=== PATIENT | female | born 1940 ===

== ENCOUNTER 2024-01-21 05:37 | Observation (INO) ==
[~2024-01-21 05:37] MED LIST: Metoclopramide 5 MG/ML VIAL (10 mg) IV PRN; NS 0.45% 1000 ml BAG 1,000 ML IV SCH; Naloxone 0.4 mg VIAL 0.4 mg/ml 1 ml VIAL IV PRN; Ondansetron 4 mg VIAL 2 MG/ML 2 ml VIAL IV PRN
[2024-01-21] MEDS ORDERED: ceFAZolin 2 GM in NS PREMIX 2 GM/100 ML BAG IVPB ONE (06:05)
[2024-01-21 06:15] LABS: Rapid COVID-19 Molecular Undetected (Undetected)
[2024-01-21] MEDS: Lactated Ringers 1000 ml BAG 1,000 ML IV SCH ×2 (06:40→12:16)
[2024-01-21] MEDS: Scopolamine 1 mg/72hr PATCH TRANSDERM ONE (06:44)
[2024-01-21] MEDS ORDERED: ROPIVACAINE 5 MG/ML 30 ML BTL (0.5%) ONE (06:46)
[2024-01-21 07:15] LABS: Hematocrit 28.8 % (35-45); Hemoglobin 9.5 g/dL (11.5-14.3); Mean Corpuscular Hemoglobin 23.1 pg (27-33); Mean Corpuscular Hgb Conc 32.9 g/dL (31-36); Mean Corpuscular Volume 70.4 fL (80-97); Mean Platelet Volume 6.5 fL (7.5-11.2); Platelet Count 379 10^3/uL (150-450); Red Blood Count 4.09 10^6/uL (3.63-4.92); Red Cell Distribution Width 32.6 % (12-17); White Blood Count 5.2 10^3/uL (3.8-11.8)
[2024-01-21] MEDS ORDERED: Phenylephrine IV 10 MG/ML 1 ml VIAL ONE (07:15)
[2024-01-21] MEDS ORDERED: Propofol 10 MG/ML 20 ML BTL ONE ×2 (07:17→09:42)
[2024-01-21] MEDS ORDERED: Glycopyrrolate IV 0.2 MG/ML 1 ML VIAL ONE (07:58)
[2024-01-21] MEDS ORDERED: Lidocaine 2% PF 5 ML VIAL ONE (08:15)
[2024-01-21] MEDS ORDERED: Bupivacaine 0.5% PF 10 ML SDV VIAL INJ ONE (08:15)
[2024-01-21 08:37] LABS: ABS Basophils 0.1 10^3/uL (0.0-0.1); ABS Eosinophils 0.2 10^3/uL (0.0-0.5); ABS Lymphocytes 1.2 10^3/uL (1.0-4.8); ABS Monocytes 0.6 10^3/uL (0.0-0.9); ABS Neutrophils 3.3 10^3/uL (1.5-7.6); Eosinophil % 2.9 %; Lymphocyte % 22.1 %
[2024-01-21] MEDS ORDERED: fentaNYL 100 mcg/2 ml 50 MCG/ML VIAL ONE ×2 (09:59→10:47)
[2024-01-21] MEDS ORDERED: Magnesium Hydroxide LIQ 30 ML UDC PO PRN (10:18)
[2024-01-21] MEDS ORDERED: Ondansetron 4 mg VIAL 2 MG/ML 2 ml VIAL IV PRN (10:18)
[2024-01-21] MEDS ORDERED: Ondansetron ODT 4 mg TAB 4 MG TAB PO PRN (10:18)
[2024-01-21] MEDS ORDERED: Morphine 2 MG/ML SYRINGE IV PRN (10:18)
[2024-01-21] MEDS ORDERED: Lactulose 30 ml UDC PO PRN (10:18)
[2024-01-21] MEDS ORDERED: Calcium Carb (TUMS) 500 mg CHEW TAB PO PRN (10:18)
[2024-01-21] MEDS: fentaNYL 100 mcg/2 ml 50 MCG/ML VIAL IV PRN (10:51)
[2024-01-21] MEDS: Buffered Lidocaine 1% SYRIN 1 ml INTRADERM ONE (12:20)
[2024-01-21] MEDS: Acetaminophen IV 1 GM/100ML 1,000 MG/100 ML BAG IV ONE (12:20)
[2024-01-21] MEDS: ceFAZolin 2 GM in NS PREMIX 2 GM/100 ML BAG IVPB SCH (16:02)
[2024-01-21] MEDS: Magnesium Hydroxide LIQ 30 ML UDC PO SCH (20:45)
[2024-01-22] MEDS: Vitamin THERAPEUTIC TAB PO SCH (08:14)
[2024-01-22] MEDS: Aspirin EC 325 mg TAB.EC PO SCH (08:14)
[2024-01-22 08:32] LABS: Creatinine, Serum 0.5 mg/dL (0.51-0.95); Potassium 4.2 mmol/L (3.5-5.0); eGFR CKD-EPI 93.6 (>60)
[2024-01-22 08:34] LABS: Hematocrit 27.9 % (35-45); Hemoglobin 8.9 g/dL (11.5-14.3); Mean Platelet Volume 6.9 fL (7.5-11.2); Platelet Count 367 10^3/uL (150-450)
[2024-01-22 10:34] VITALS: BP 121/57
== END 2024-01-22 15:10 | disposition home or self-care (01) ==
LOC: SSU 05:37 → SDS 05:37 → EDSTATUS 07:30
PROVIDERS: ADMIT Orthopaedic Surgery Adult Reconstructive Orthopaedic Surgery; ATTEND Orthopaedic Surgery Adult Reconstructive Orthopaedic Surgery